=== PATIENT | female | born 2000 | race African-American/Black ===

== ENCOUNTER 2022-01-28 13:27 | Emergency (ER) | payer BC ==
[~2022-01-28] VITALS: Ht 177.8 cm; Wt 95.0 kg
[2022-01-28] MEDS ORDERED: ONDANSETRON HCL 4MG/2ML INJ IV STA (16:12)
[2022-01-28] MEDS ORDERED: SODIUM CHLORIDE 0.9% 1,000 ML IV ONE (16:15)
[2022-01-28 16:49] LABS: BASOPHILS % 0.5 % (0.0-2.0); EOSINOPHILS % 1.9 % (0.0-5.0); HEMATOCRIT. 39.9 % (36.0-48.0); HEMOGLOBIN. 13.6 g/dL (12.0-16.0); MEAN CORPUSCULAR HEMOGLOBIN 31.1 pg (28.0-32.0); MEAN PLATELET VOLUME 8.5 fl (7.4-10.4); MONOCYTES % 7.8 % (2.0-8.0); NEUTROPHILS % 65.8 % (40.0-76.0); PLATELET 210 x1000/uL (130-400); RED BLOOD CELL COUNT 4.38 mill/uL (4.2-5.4); RED CELL DISTRIBUTION WIDTH 13.3 % (11.6-14.6)
[2022-01-28 16:56] LABS: CHLORIDE 106 mEq/L (98-107)
[2022-01-28 17:00] LABS: ETHANOL BLOOD < 10 mg/dL
[2022-01-28 17:07] LABS: B-HCG QUANTITATIVE < 1 mIU/mL (<3); CREATINE KINASE MB FRACTION < 1.0 ng/mL (0.5-3.6)
[2022-01-28] MEDS ORDERED: KETOROLAC 15MG/ML VIAL IV ONE (17:30)
[2022-01-28 18:38] LABS: CLARITY URINE CLEAR (CLEAR); COLOR URINE YELLOW (YELLOW); KETONES URINE TRACE (NEGATIVE); LEUKOCYTE ESTERASE URINE 1+ (NEGATIVE); NITRITE URINE NEGATIVE (NEGATIVE); OCCULT BLOOD URINE NEGATIVE (NEGATIVE); PROTEIN URINE NEGATIVE (NEGATIVE); SPECIFIC GRAVITY URINE 1.015 (1.005-1.030); UROBILINOGEN URINE 0.2 E.U./dL (0.2-1.0)
[2022-01-28] MEDS ORDERED: CEFP200T13 MT (19:44)
[2022-01-28] MEDS ORDERED: CEFTRIAXONE 1 G PREMIX 50 ML IV ONE (20:00)
[2022-01-28] MEDS ORDERED: ACETAMINOPHEN 325MG TABLET PO ONE (20:00)
[2022-01-28 20:25] VITALS: BP 143/77
== END 2022-01-28 20:28 | disposition home or self-care (01) ==
LOC: ER 13:41
DX: N10 Acute pyelonephritis (principal)
CPT/HCPCS: 36415; 80053; 80320; 81003; 81025; 82553; 83690; 84702; 85025; 96361; 96365; 96375; 99284; J0696; J1885; J2405; J7030; G0480